=== PATIENT | female | born 1955 | race Caucasian/White ===

== ENCOUNTER 2018-09-15 10:09 | Inpatient (IN) ==
[2018-09-15] MEDS ORDERED: NS 1,000 ML IV ONE ×3 (11:00→15:58)
[2018-09-15 11:29] LABS: BASO# 0.01 X1000 (0.0-0.2); HEMATOCRIT 23.6 % (37.0-47.0); HEMOGLOBIN 7.9 g/dL (12.0-16.0); IMM GRAN# 0.23 X1000 (0.0-0.04); LYMPH# 1.01 X1000 (1.2-3.4); LYMPH% 4.2 % (20.5-51.1); MCH 36.7 PG (27-31); MCHC 33.5 g/dL (33-37); MCV 109.8 FL (81-99); MONO# 0.48 X1000 (0.11-0.59); MPV 10.5 FL (7.4-10.4); NEUT# 22.43 X1000 (1.4-6.5); NEUT% 92.8 % (42.2-75.2); PLT 161 X1000 (130-400); RBC 2.15 XMIL (4.2-5.4); RDW 20.8 % (11.5-14.5); WBC 24.16 X1000 (4.8-10.8)
[2018-09-15 11:42] LABS: BANDS 26 % (0-1); LYMPHS 4 % (21-51); SEGS 70 % (42-75)
[2018-09-15 11:52] LABS: ALB/GLOB RATIO 0.8; ALBUMIN 2.5 g/dL (3.5-5.0); CALCIUM 7.6 mg/dL (8.8-10.2); CREATININE 1.4 mg/dL (0.5-0.9); MAGNESIUM 1.3 mg/dL (1.5-2.7); POTASSIUM 3.9 mmol/L (3.5-5.1); TOTAL BILIRUBIN 0.77 mg/dL (0.20-1.00); TOTAL PROTEIN 5.6 g/dL (6.3-8.3)
[2018-09-15 12:01] LABS: T4 3.48 ug/dL (4.60-12.00); TSH 2.01 uIUmL (0.27-4.20)
[2018-09-15 13:41] LABS: INR 0.91; PTT 29.4 Seconds (22.3-41.8)
--- NOTE | 2018-09-15 13:46 | Diag Imaging Result Doc PS360 ---
EXAM: CHEST-1 VIEW INDICATION: sepsis prot. TECHNIQUE: One view COMPARISON: 11/10/2017 FINDINGS: There is evidence of prior granulomatous disease, stable. The lungs are grossly clear. There is no discrete pleural fluid collection or pneumothorax. The cardiomediastinal silhouette and central vasculature are grossly unremarkable. IMPRESSION: No evidence of acute pathology by plain radiograph. Electronically signed by Kush Sterling 09/15/2018 1:43 PM
[2018-09-15] MEDS ORDERED: LEVAQUIN 500 MG/D5W 500 MG/100 ML IVPB IV ONE (14:01)
[2018-09-15 14:04] LABS: URINE SOURCE CATH
[2018-09-15 14:14] LABS: UR EPITHELIAL CELLS <10 /HPF (<10); URINE BACTERIA 4+ /HPF; URINE RBC <10 /HPF (<10); URINE WBC TNTC /HPF (<10)
[2018-09-15 14:16] LABS: BILIRUBIN URINE SMALL (NEGATIVE); BLOOD URINE SMALL (NEGATIVE); COLOR ORANGE; GLUCOSE URINE NEGATIVE (NEGATIVE); KETONE URINE NEGATIVE (NEGATIVE); LEUKOCYTES URINE LARGE (NEGATIVE); NITRITE URINE NEGATIVE (NEGATIVE); PROTEIN URINE 100 mg/dL (NEGATIVE); SP GRAVITY URINE 1.014; TURBIDITY URINE TURBID (CLEAR); UROBILINOGEN URINE 8 mg/dL (NORMAL)
--- NOTE | 2018-09-15 15:29 | PROVIDER DOCUMENTATION ---
This chart was entered by Josey Cardoso Scribe, acting as scribe for Ronan Moctezuma MD. HPI-General Adult - General Chief Complaint: General Adult Stated Complaint: DR SERRANO REFERRED Time Seen by Provider: 09/15/18 10:49 Source: patient, family () Allergies/Adverse Reactions: Patient Allergies Allergy/AdvReac Type Severity Reaction Status Date / Time No Known Allergies Allergy Verified 11/10/17 03:08 Home Medications: Home Medication List Medication Instructions Recorded Confirmed Last Taken Type Gabapentin 400 mg PO TID 11/10/17 09/15/18 Unknown History Hydrochlorothiazide 12.5 mg PO DAILY 11/10/17 09/15/18 Unknown History Mirtazapine 15 mg PO HS 11/10/17 09/15/18 Unknown History Ferrous Sulfate 325 mg PO WBREAKFAST tablet 11/13/17 09/15/18 Unknown Rx Oxycodone I.r. [Oxy Ir] 5 mg PO Q3H PRN PRN tablet 11/13/17 09/15/18 Unknown Rx Cholecalciferol (Vitamin D3) 50,000 unit PO DAILY 09/15/18 09/15/18 Unknown History [Dialyvite Vitamin D3 Max] Diphenhydramine HCl [Benadryl 25 mg PO DAILY 09/15/18 09/15/18 Unknown History Allergy] Fluticasone 50 Mcg Nasal [place] 16 gm NS DAILY 09/15/18 09/15/18 Unknown History [Flonase] Mirtazapine [Remeron] 15 mg PO QHS 09/15/18 09/15/18 Unknown History Omeprazole 20 mg PO DAILY 09/15/18 09/15/18 Unknown History Ondansetron HCl 4 mg PO TID PRN 09/15/18 09/15/18 Unknown History - History of Present Illness -Gen Adult Nature of Presenting Problems: 63 yowf presents to the ed from dr serrano office this am. pt was sent to ed with hypotensive episode , fatigue and chronic diarrhea . pt sts sx have been intermittent for 6 months but have worsened in the last 4 days. pt is pale on exam and tearful Location of Pain/Injury: reports: none Pain Radiation: reports: no radiation Quality of Pain: reports: none Severity: reports: moderate Onset/Duration: reports: other (6 months) Timing: reports: still present, intermittent, getting worse (last 4 days) Context/Activities at Onset: reports: light activity Modifying Factors: improves with: nothing Associated Symptoms: reports: diarrhea, fatigue, genitourinary problems (dysuria), loss of appetite, weakness. denies: back/neck pain, chest pain, cough, headaches, shortness of breath, syncope, vomiting Similar Symptoms Previously?: Yes Recently seen or treated by another doctor?: Yes (dr serrano today) Review of Systems - Adult - REVIEW OF SYSTEMS - ADULT Constitutional: reports: see HPI, fatique. denies: chills, fever Eyes: reports: no symptoms reported Ears, Nose, Mouth & Throat: reports: no symptoms reported Cardiovascular: denies: chest pain, palpitations Respiratory: denies: cough, shortness of breath, wheezing Gastrointestinal: reports: diarrhea, poor appetite. denies: abdominal pain, nausea, vomiting Genitourinary: reports: see HPI, dysuria Musculoskeletal: reports: see HPI, muscle weakness. denies: back pain, neck pain Integumentary: reports: no symptoms reported Neurological: denies: dizziness/vertigo, headache/migraines Psychiatric: reports: no symptoms reported Endocrine: reports: no symptoms reported Hematologic/Lymphatic: reports: see HPI, easy bruising, low blood count Allergic/Immunologic: reports: no symptoms reported All Other Systems: Reviewed and Negative Past History - Adult - PAST MEDICAL HISTORY-ADULT Review of Records: reports: Old Records Reviewed, Nursing Assessment Review, Medications Reviewed, Social history reviewed & non-contributory. Major Childhood Illnesses: reports: denies history Cardiovascular: reports: HTN Respiratory: reports: denies history Gastrointestinal: reports: GERD Obstetrical/Gynecological: reports: denies history Genitourinary: reports: kidney disease Musculoskeletal: reports: denies history Hand Dominance: Right Handed Neurological: reports: Parkinson's, other (Guillain Munson syndrome) Psychiatric: reports: depression Endocrine/Immune: reports: anemia Other Conditions: reports: denies history - PRIOR SURGERIES/PROCEDURES Surgical/Procedure History: reports: cholecystectomy, hysterectomy, gastric bypass, other (rt kidney removed) - IMMUNIZATION STATUS Childhood Immunizations: See Nurse Assessment Flu Vaccine: See Nurse Assessment - FAMILY HISTORY Family History: reviewed, not pertinent - SOCIAL HISTORY Smoking: cigarettes, less than 1 pack/day Provider spent 3-5 mins advising pt. on dangers of tobacco.: Discussed manners to quit use, and f/u contacts for add'l counseling. Substance Use: alcohol (wine) Alcohol Use Frequency: every day Number of drinks per typical drinking period:: 3-4 drinks Living Situation: family Physical Exam-General - PHYSICAL EXAM-ADULT Initial Vital Signs Reviewed: Yes - CONSTITUTIONAL General Appearance: alert, mild distress, obese, other (tearful) - EYES Eyes: PERRL/EOMI, pale conjunctivae - HEAD, EARS, NOSE, MOUTH & THROAT HENMT: negative: moist mucous membranes (sry oral) - NECK Neck: non-tender, full range of motion, supple, normal inspection - RESPIRATORY Respiratory: chest non-tender, lungs clear, normal breath sounds, increased rate (24) - CARDIOVASCULAR Cardiovascular: normal peripheral pulses, tachycardia (101), other (BP 85/57) - CHEST (BREASTS) Chest/Breast: deferred - GASTROINTESTINAL (ABDOMEN) Abdominal Exam: normal bowel sounds, non tender, soft - GENITOURINARY Female Genitalia/Pelvic Exam: deferred Rectal Exam: deferred Hemoccult Exam: deferred - LYMPHATIC Lymphatic: no adenopathy - MUSCULOSKELETAL Back Exam: normal inspection, no CVA tenderness, no vertebral tenderness Extremity: normal range of motion, non-tender, normal gait (per baseline), swelling (BLE edema) - SKIN Integumentary: normal turgor, pallor - NEUROLOGIC Neurologic: grossly normal, no motor/sensory deficits - PSYCHIATRIC Psych/Mental Status: normal thought content, normal thought process, oriented x 3, tearful Progress - PLAN OF CARE/RESULTS Progress/Plan/Lab Results: Vital Signs - 8 hr 09/15/18 10:36 Temperature 98.4 F Pulse Rate 101 H Respiratory Rate 20 Blood Pressure 85/57 O2 Sat by Pulse Oximetry 99 Orders Category Date Time Status CBC WITH DIFF [HEME] Stat Lab 09/15/18 11:16 Ordered COMPREHENSIVE METABOLIC PANEL [CHEM] Stat Lab 09/15/18 11:16 Ordered MAGNESIUM [CHEM] Stat Lab 09/15/18 11:16 Ordered T4 Stat Lab 09/15/18 11:16 Ordered TSH Stat Lab 09/15/18 11:16 Ordered 0.9% Sodium Chloride Inj [Ns] 1,000 ml Med 09/15/18 11:00 Active IV 999 mls/hr Result Diagrams: 09/15/18 11:10 09/15/18 11:10 - REASSESSMENT Reassessment #1 Time Reassessed: 13:12 (pt is resting in bed in no distress) Status: improving Reassessment #2 Time Reassessed: 15:25 (pt is resting in bed) Status: unchanged - XRAY 1 XRAY: Bilateral XRAY Study: Chest Impression: See EMR Report (EXAM: CHEST-1 VIEW INDICATION: sepsis prot. TECHNIQUE: One view COMPARISON: 11/10/2017 FINDINGS: There is evidence of prior granulomatous disease, stable. The lungs are grossly clear. There is no discrete pleural fluid collection or pneumothorax. The cardiomediastinal silhouette and central vasculature are grossly unremarkable. IMPRESSION: No evidence of acute pathology by plain radiograph. Electronically signed by Kush Sterling 09/15/2018 1:43 PM 09/15/18 1343 Interpreting Physician: Kush Sterling MD Dictated Date/Time: 09/15/18 1343 cc: Ronan Moctezuma MD; Cornelio Serrano MD) - CONSULTS/PCP/HOSPITALIST Notification #1 *Consult/PCP/Hospitalist*: hospitalist Time Discussed: 15:25 Consult Disposition: Admit Departure - Departure Date of Disposition Decision: 09/15/18 Time of Disposition Decision: 15:27 DIAGNOSIS: Sepsis secondary to UTI, Hypomagnesemia, Hypothyroid, Macrocytic anemia DIAGNOSIS: (Ruled Out): Hypothyroid coma Disposition: ADMITTED INPATIENT 09 Certified Medical Emergency: Emergent Condition: Serious Referrals and Follow-Ups: Cornelio Serrano MD [Primary Care Provider] - - Critical Care Note This patient required my direct & personal management of CC.: Yes Total Time (mins): 36 Critical Care Statement: This patient required my direct personal management to treat or rule out processes, the absence of which, could potentiallly result in sudden, clinically significant life or limb threatening deterioration. Attestation - Physician/ LILIANE Attestation Patient care was provided by Advanced Practice Provider:: No The physician spent face to face time with patient:: Yes Advanced Practice Provider documentation review:: Supervising physician onsite and consulted in the evaluation and care of this patient. The physician did have a face to face encounter with the patient. This chart was documented by the lilian rivera, (Josey Cardoso, Greta) and accurately reflects the services I performed and decisions made by me, Ronan Moctezuma MD, as attested by the provider's signature.
[2018-09-15] MEDS ORDERED: TYLENOL PO PRN (16:12)
[2018-09-15] MEDS ORDERED: ZOFRAN IV PRN (16:12)
[2018-09-15] MEDS ORDERED: MAGNESIUM SULFATE 2 GM/S.W.I. 2 GM/50 ML IVPB IV ONE (16:13)
[2018-09-15] MEDS ORDERED: ROCEPHIN 1 GM in NS 50 ML IV SCH (16:15)
--- NOTE | 2018-09-15 16:52 | HISTORY AND PHYSICAL ---
She does not have a primary care physician, but she has seen Dr. Vieyra. She has seen Dr. Villasenor for Gastroenterology, Dr. Vieyra for anemia. This is a 63-year-old with a history of: 1. Parkinson's. 2. Hypertension. 3. She is status post gastric bypass surgery. I believe this was a Nichelle-en-Y. It was done in 2004, but I do not know about that. 4. Gastroesophageal reflux. 5. Anemia and folate deficiency. PAST SURGICAL HISTORY: 1. Gastric bypass surgery. 2. Cholecystectomy. 3. Hysterectomy. 4. 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 5. She had a fractured hip. She spent some time in rehabilitation after that. She did make some progress, but she presents stating that for the last 4 or 5 months, she has progressively gotten weaker to the point that 4 or 5 days ago she could not hardly get out of bed. She denies pain. She denies fever or chills. No gross hematuria or dysuria. No cough. No pleuritic pain. ALLERGIES: No known drug allergies. SOCIAL HISTORY: A 50-[id number]-uhmd history of smoking and used to have at least a history of social alcohol. Denies any illicit drug use. FAMILY HISTORY: No history of coronary artery disease. No history that she thinks is significant. REVIEW OF SYSTEMS: General: She has lost 25 pounds she thinks in the last 6 months. No fever or chills reported. HEENT: She does not report any visual or hearing acuity change. No upper respiratory complaints. Neck: No adenopathy that she is aware of. No neck pain. Respiratory: No increased work of breathing or dyspnea. Cardiovascular: No chest pain or tachy palpitations. Gastrointestinal and Genitourinary: No gross hematuria or dysuria. Musculoskeletal/Neurologic: No focal complaints, just general weakness. Endocrinologic/Hematologic: History of anemia. History of folate and B12 deficiency. PHYSICAL EXAMINATION: VITAL SIGNS: Temperature 99.7 degrees, pulse 114, respirations were 19, blood pressures been running in 60s and 70s. GENERAL: They have given her 2 L of fluid and starting on the 3rd. She reports she has not drunk or eaten much, and it looks like she is volume depleted. HEENT: Pupils were equal. NECK: No distended neck veins. CVP less than 6 cm from the right atrium. No cervical or supraclavicular adenopathy. Neck was supple. VASCULAR: Carotid, radial, and popliteal pulses 2+ and symmetrical. CARDIOVASCULAR: Regular rhythm and rate without murmur or S3. PMI nondisplaced. LUNGS: Clear in all lung aceves, anterior and posterior lateral. GASTROINTESTINAL: Abdomen is soft, nondistended. Nontender. I do not appreciate organomegaly. EXTREMITIES: She has 2+ pitting edema from the ankles all the way up to almost her knee symmetrical. SKIN: I did not see any rashes, oral or nasal mucosa lesions. DIAGNOSTIC STUDIES: White count 24,160, hematocrit is 23 hemoglobin 7.9, platelet count 169,000. Sodium 133, potassium 3.9, chloride 96, BUN 10, creatinine 1.4, calcium is 7.6, magnesium was 1.3, AST is elevated at 241, ALT was 85, alkaline phosphatase is 287, total bilirubin was 0.77, albumin 2.5, total protein was low at 5.6. TSH is 2.01, T4 was 3.48. Pro-time 13, INR 0.9, PTT is 29. Urinalysis: 4+ bacteria, whu-yeqmgana-gl-count white blood cells. Chest x-ray: No evidence of acute pathology or infiltrate. ASSESSMENT AND PLAN: 1. General weakness status post gastric bypass with a history of B12 and folate deficiencies. We need to check her B12 and folate. We are going to go ahead and give her a B12 IM injection 1000 mg once a day for the next 3 days, and we will put her on folate 1 mg p.o. twice a day. Note: She has a history of iron deficiency, I believe. MCV, though, was macrocytic, it is 109, and her hematocrit is 23, hemoglobin 7.9, and I suspect that will drop after her fluids. We will type and cross 2 units of packed red blood cells, and we will plan on giving her that probably in the morning so we will get that ready for the morning. We will check her iron studies again, serum iron, ferritin, total iron binding capacity. 2. Note the magnesium was low and so we need to supplement that in the emergency room, so we will plan on giving her 2 g of magnesium IV. We will recheck the magnesium again in the morning. We need to check an a.m. cortisol level as well to see if she is cortisone deficient, and I think for now I will put her on a soft GI diet and see how we do with p.o. intake. 3. She has sediment in the urine. She does not give symptoms, but she has ois-muzedaxw-va-count white blood cells so we will treat her for a possible urinary tract infection. She has a history of a solitary kidney. She had a nephrectomy for a nonfunctional kidney that apparently was infected, so we will put her on Rocephin. We will give her ceftriaxone 1 g now and 1 g q.24 h. 4. She has an elevated white count. I think this is nonspecific. We will check it again tomorrow to see if this is just a bone marrow demargination from stress, but we will recheck it. I suspect she has a combination of iron deficiency, B12 and folate deficiencies, and I suspect her anemia is the main cause of her fatigue and weakness. cc: Antwan Cardenas MD
[2018-09-15] MEDS: NS 1,000 ML IV SCH (17:33)
[2018-09-15 17:50] LABS: IRON SATURATION 77 %; TIBC 177 ug/dL; TOTAL IRON 136 ug/dL (49-151); UNBOUND IRON 41 ug/dL (112-346)
[2018-09-15 18:09] LABS: FERRITIN 1245 ng/mL (13-150)
[2018-09-15] MEDS: NEURONTIN PO SCH (18:15)
[2018-09-15] MEDS: CYANOCOBALAMIN IM SCH (18:15)
[2018-09-15] MEDS: FOLIC ACID 1 MG in NS 50 ML IV SCH (21:04)
[2018-09-15] MEDS: REMERON PO SCH (21:05)
[2018-09-16] MEDS: NS 1,000 ML IV SCH ×3 (04:29→16:10)
[2018-09-16 06:10] LABS: BASO# 0.01 X1000 (0.0-0.2); BASO% 0.1 % (0.0-0.8); EOS# 0.03 X1000 (0.0-0.7); EOS% 0.3 % (0.0-10.0); HEMATOCRIT 19.1 % (37.0-47.0); HEMOGLOBIN 6.2 g/dL (12.0-16.0); IMM GRAN# 0.29 X1000 (0.0-0.04); IMM GRAN% 2.5 % (0.0-0.5); LYMPH% 4.3 % (20.5-51.1); MCH 36.3 PG (27-31); MCHC 32.5 g/dL (33-37); MCV 111.7 FL (81-99); MONO# 0.19 X1000 (0.11-0.59); MONO% 1.7 % (1.7-9.3); NEUT# 10.48 X1000 (1.4-6.5); NEUT% 91.1 % (42.2-75.2); PLT 107 X1000 (130-400); RBC 1.71 XMIL (4.2-5.4); RDW 20.6 % (11.5-14.5)
[2018-09-16 06:13] LABS: INR 1.03; PROTIME 14.3 Seconds (11.0-16.0)
[2018-09-16 06:31] LABS: TSH 2.16 uIUmL (0.27-4.20)
[2018-09-16 06:35] LABS: FREE T4 0.52 ng/dL (0.93-1.70)
[2018-09-16 06:43] LABS: ALB/GLOB RATIO 0.8; ALBUMIN 1.8 g/dL (3.5-5.0); MAGNESIUM 1.7 mg/dL (1.5-2.7); POTASSIUM 3.6 mmol/L (3.5-5.1); TOTAL BILIRUBIN 0.28 mg/dL (0.20-1.00); TOTAL PROTEIN 4.1 g/dL (6.3-8.3)
[2018-09-16 06:44] LABS: CALCIUM 6.9 mg/dL (8.8-10.2)
[2018-09-16] MEDS ORDERED: CALCIUM GLUCONATE 1 GM in NS 50 ML IV ONE (06:54)
--- NOTE | 2018-09-16 07:05 | EKG Report ---
Test Performed on : 09/16/2018 06:40:26 AM Test Reason : chest pain Blood Pressure : / mmHG Vent. Rate : 100 BPM Atrial Rate : 100 BPM P-R Int : 164 ms QRS Dur : 072 ms QT Int : 356 ms P-R-T Axes : 072 070 096 degrees QTc Int : 459 ms Normal sinus rhythm. Low voltage QRS Nonspecific ST abnormality Abnormal ECG When compared with ECG of 22-NOV-2012 08:42, aberrant conduction. is no longer present QRS voltage has decreased Criteria for Inferior infarct are no longer present Confirmed by Mihai Hairston MD ([id number]) on 09/21/2018 9:31:03 PM
[2018-09-16] MEDS ORDERED: MAGNESIUM SULFATE 2 GM/S.W.I. 2 GM/50 ML IVPB IV ONE (07:55)
--- NOTE | 2018-09-16 08:12 | PROGRESS NOTE ---
DATE: 09/16/2018 SUBJECTIVE: Ms. Montejo slept pretty good last night. She may feel a little bit better. Hemoglobin was 6. We gave her some fluid; I think that has helped. I gave her a little magnesium. I have given her B 12 and folate. OBJECTIVE: Vital Signs: On her exam today, afebrile. Temperature 98.4 degrees, pulse 95, respirations 18, blood pressure 94/65. Eyes: Pupils are equal and round. Lungs: Clear in all lung aceves. Cardiovascular exam: Regular rhythm and rate without murmur or S3. Abdomen: Soft. Skin: Warm and dry. : Urine output was 1400 mL. X-RAYS: EKG: Normal sinus rhythm, no ST-segment deviation. LABS: Reviewed lab. White count 11,500 came down from 24,000 yesterday, hematocrit 19, hemoglobin 6.2, MCV was 111. Sodium 140, potassium 3.6, chloride 108. BUN 14, creatinine 1.0 which is down from 1.4, calcium was 6.9, magnesium up to 1.7. AST 85 went down to 53, ALT 287 went down to 169. TSH was 2.16, T4 was 0.52. ASSESSMENT AND PLAN: 1. Anemia, combination macrocytic and I think she is iron deficient as well. We will check some iron studies and indeed she has a total iron binding capacity 177, total iron was 136, and ferritin was 41. So, continue B 12 and folate. We will give her 2 units of packed red blood cells. We will give her a little additional magnesium. 2. She had sediment in the urine. Not convinced it was symptomatic, but we are going to treat her anyway. She did have an elevated white count. So, she is on ceftriaxone 1 g IV q. 24 hours. 3. Status post gastric bypass surgery. 4. General weakness. I think this is related to her anemia, electrolyte abnormalities. cc: Antwan Cardenas MD
[2018-09-16] MEDS: CYANOCOBALAMIN IM SCH (08:37)
[2018-09-16] MEDS: NEURONTIN PO SCH ×3 (08:37→20:53)
[2018-09-16] MEDS: FERROUS SULFATE PO SCH (08:37)
[2018-09-16] MEDS: MAG-OX PO SCH ×2 (08:44→20:53)
[2018-09-16] MEDS ORDERED: CHOLECALCIFEROL PO SCH (09:00)
[2018-09-16] MEDS: FOLIC ACID 1 MG in NS 50 ML IV SCH ×2 (09:29→20:53)
[2018-09-16] MEDS: ZOSYN 3.375 GM in NS 50 ML IV SCH ×3 (09:57→20:54)
[2018-09-16] MEDS: FLONASE NAS SCH (10:21)
[2018-09-16] MEDS: REMERON PO SCH (20:53)
[2018-09-16] MEDS: OXY IR PO PRN (21:40)
[2018-09-17] MEDS: ZOSYN 3.375 GM in NS 50 ML IV SCH ×4 (03:22→20:39)
[2018-09-17] MEDS: NS 1,000 ML IV SCH ×2 (03:22→14:19)
[2018-09-17] MEDS: OXY IR PO PRN ×2 (03:46→09:51)
[2018-09-17 05:58] LABS: BASO# 0.01 X1000 (0.0-0.2); BASO% 0.1 % (0.0-0.8); EOS# 0.04 X1000 (0.0-0.7); EOS% 0.5 % (0.0-10.0); HEMATOCRIT 28.8 % (37.0-47.0); HEMOGLOBIN 9.6 g/dL (12.0-16.0); IMM GRAN# 0.04 X1000 (0.0-0.04); IMM GRAN% 0.5 % (0.0-0.5); MCH 33.9 PG (27-31); MCHC 33.3 g/dL (33-37); MCV 101.8 FL (81-99); MONO# 0.26 X1000 (0.11-0.59); MPV 10.9 FL (7.4-10.4); NEUT# 7.61 X1000 (1.4-6.5); NEUT% 88.9 % (42.2-75.2); PLT 100 X1000 (130-400); RBC 2.83 XMIL (4.2-5.4); RDW 22.4 % (11.5-14.5); WBC 8.56 X1000 (4.8-10.8)
[2018-09-17] MEDS: SYNTHROID PO SCH (06:07)
[2018-09-17 06:17] LABS: AGAP 13; ALB/GLOB RATIO 0.6; ALBUMIN 1.9 g/dL (3.5-5.0); ALKALINE PHOSPHATASE 181 U/L (32-104); BUN 13 mg/dL (8-22); CALCIUM 7.4 mg/dL (8.8-10.2); CHLORIDE 108 mmol/L (98-107); COSMO 275; CREATININE 0.8 mg/dL (0.5-0.9); ESTIMATED GFR > 60; GLUCOSE 91 mg/dL (70-104); GOT 75 U/L (10-30); GPT 44 U/L (10-36); POTASSIUM 3.6 mmol/L (3.5-5.1); SODIUM 138 mmol/L (136-145); TCO2 17 mmol/L (25-35); TOTAL BILIRUBIN 0.41 mg/dL (0.20-1.00); TOTAL PROTEIN 4.9 g/dL (6.3-8.3)
--- NOTE | 2018-09-17 09:09 | PROGRESS NOTE ---
DATE: 09/17/2018 SUBJECTIVE: Ms. Montejo says she just does not feel good today. Still coughing. She still feels like she is pretty weak. She was able to eat a little bit, and get some bites of food down. OBJECTIVE: Temp 97.9 degrees, pulse 105, respirations 19 and blood pressure 138/91. Pupils are equal and round. Lungs are clear in all lung aceves. Cardiovascular exam regular rhythm and rate without murmur or S3. Abdomen is soft. Skin is warm and dry. LABORATORY DATA: Labs from this morning, white count 8560, hemoglobin 9.6, hematocrit 28, and platelet count 100,000. Chemistries show sodium 138, potassium 3.6, chloride 108, BUN 13, and creatinine 0.8. Transaminases have come down AST from 136 to 75, ALT 53 to 44, alkaline phosphatase 69 to 181, albumin is 1.9. T4 was 0.52 and TSH was 2.16. Cortisol was good at 17.4. ASSESSMENT AND PLAN: 1. Anemia, combination of macrocytic and iron deficiency anemia. Given 2 units of packed red blood cells. We supplemented the potassium and magnesium as well as B12 and folate. 2. Sediment in the urine, treating her as if she has urinary tract infection. 3. Status post gastric bypass surgery. 4. General weakness. Let her rest today. We need to initiate physical therapy soon. We probably will start that tomorrow. REVIEW OF HER ORDERS: I do not see any change. cc: Antwan Cardenas MD
[2018-09-17] MEDS: MAG-OX PO SCH ×2 (09:40→20:39)
[2018-09-17] MEDS: CYANOCOBALAMIN IM SCH (09:40)
[2018-09-17] MEDS: NEURONTIN PO SCH ×3 (09:40→20:39)
[2018-09-17] MEDS: FERROUS SULFATE PO SCH (09:40)
[2018-09-17] MEDS: FOLIC ACID 1 MG in NS 50 ML IV SCH ×2 (09:41→20:39)
[2018-09-17] MEDS: FLONASE NAS SCH (09:52)
[2018-09-17] MEDS: TESSALON PO PRN ×2 (10:35→16:11)
[2018-09-17] MEDS: MUCINEX PO SCH ×2 (10:35→20:40)
[2018-09-17] MEDS: REMERON PO SCH (20:40)
[2018-09-18] MEDS: TESSALON PO PRN ×3 (00:50→17:59)
[2018-09-18] MEDS: ZOSYN 3.375 GM in NS 50 ML IV SCH ×4 (02:04→20:51)
[2018-09-18] MEDS: NS 1,000 ML IV SCH ×2 (02:05→14:52)
[2018-09-18 06:01] LABS: BASO# 0.02 X1000 (0.0-0.2); BASO% 0.3 % (0.0-0.8); EOS# 0.01 X1000 (0.0-0.7); EOS% 0.1 % (0.0-10.0); HEMOGLOBIN 10.3 g/dL (12.0-16.0); IMM GRAN# 0.04 X1000 (0.0-0.04); IMM GRAN% 0.6 % (0.0-0.5); LYMPH# 0.94 X1000 (1.2-3.4); LYMPH% 13.7 % (20.5-51.1); MCHC 33.2 g/dL (33-37); MCV 102.3 FL (81-99); MONO# 0.78 X1000 (0.11-0.59); MONO% 11.4 % (1.7-9.3); MPV 10.7 FL (7.4-10.4); NEUT# 5.05 X1000 (1.4-6.5); NEUT% 73.9 % (42.2-75.2); PLT 84 X1000 (130-400); RBC 3.03 XMIL (4.2-5.4); WBC 6.84 X1000 (4.8-10.8)
[2018-09-18] MEDS: SYNTHROID PO SCH (06:35)
[2018-09-18 06:38] LABS: AGAP 12; ALB/GLOB RATIO 0.5; ALBUMIN 1.9 g/dL (3.5-5.0); ALKALINE PHOSPHATASE 211 U/L (32-104); BUN 8 mg/dL (8-22); CALCIUM 7.7 mg/dL (8.8-10.2); CHLORIDE 109 mmol/L (98-107); COSMO 278; CREATININE 0.7 mg/dL (0.5-0.9); ESTIMATED GFR > 60; GLUCOSE 66 mg/dL (70-104); GOT 57 U/L (10-30); GPT 39 U/L (10-36); MAGNESIUM 1.7 mg/dL (1.5-2.7); POTASSIUM 3.8 mmol/L (3.5-5.1); SODIUM 141 mmol/L (136-145); TCO2 20 mmol/L (25-35); TOTAL BILIRUBIN 0.34 mg/dL (0.20-1.00); TOTAL PROTEIN 5.4 g/dL (6.3-8.3)
--- NOTE | 2018-09-18 07:56 | PROGRESS NOTE ---
DATE: 09/18/2018 SUBJECTIVE: Ms. Montejo is sleeping sound and comfortable, breathing comfortably. Remains afebrile. OBJECTIVE: Vital Signs: Temperature 98.4 degrees, pulse 90, respirations 19, blood pressure 138/83. Eyes: Pupils are equal and round. Lungs: Clear in all lung aceves. Cardiovascular exam: Regular rhythm and rate without murmur or S3. Abdomen: Soft. Skin: Warm and dry. : Urine output was 1200 mL. Telemetry strips: She appears to remain in sinus rhythm. ASSESSMENT AND PLAN: 1. Anemia which I think is a combination of B 12, folate and iron deficiency. Hematocrit appears stable at 31, hemoglobin of 10. Supplementing B 12, folate, and I will give her some iron probably today. 2. Sediment in the urine. I do not have symptomatic evidence of a urinary tract infection, but treating nonetheless. 3. Status post gastric bypass surgery. 4. General weakness, which has been her main complaint. We will continue physical therapy and occupational therapy, and see how we do with ambulation and strength. cc: Antwan Cardenas MD
--- NOTE | 2018-09-18 08:02 | PROGRESS NOTE ---
DATE: 09/18/2018 ADDENDUM: Note that one of her blood cultures grew out E coli and then urine culture grew out E coli, so I do think she had a urinary tract infection with bacteremia most consistent with probably pyelonephritis, and this is improving. E coli is sensitive to cephalexin, so she has good coverage right now. cc: Antwan Cardenas MD
[2018-09-18] MEDS: MUCINEX PO SCH ×2 (08:29→20:51)
[2018-09-18] MEDS: CYANOCOBALAMIN IM SCH (08:29)
[2018-09-18] MEDS: FERROUS SULFATE PO SCH (08:29)
[2018-09-18] MEDS: NEURONTIN PO SCH ×3 (08:29→17:06)
[2018-09-18] MEDS: MAG-OX PO SCH ×2 (08:29→20:50)
[2018-09-18] MEDS: FOLIC ACID 1 MG in NS 50 ML IV SCH ×2 (08:30→21:56)
[2018-09-18] MEDS: FLONASE NAS SCH (09:22)
[2018-09-18] MEDS: REMERON PO SCH (20:51)
[2018-09-19] MEDS: ZOSYN 3.375 GM in NS 50 ML IV SCH ×4 (02:50→21:11)
[2018-09-19] MEDS: NS 1,000 ML IV SCH ×2 (02:50→14:48)
[2018-09-19] MEDS: SYNTHROID PO SCH ×2 (05:18→06:12)
[2018-09-19] MEDS: MAG-OX PO SCH ×2 (08:24→21:11)
[2018-09-19] MEDS: FOLIC ACID 1 MG in NS 50 ML IV SCH ×2 (08:24→21:54)
[2018-09-19] MEDS: MUCINEX PO SCH ×2 (08:24→21:11)
[2018-09-19] MEDS: FERROUS SULFATE PO SCH (08:24)
[2018-09-19] MEDS: NEURONTIN PO SCH ×3 (08:24→16:36)
[2018-09-19] MEDS: FLONASE NAS SCH (10:19)
[2018-09-19] MEDS: TESSALON PO PRN ×2 (16:38→21:54)
--- NOTE | 2018-09-19 16:46 | PROGRESS NOTE ---
DATE: 09/19/2018 SUBJECTIVE: Ms Montejo is feeling better, got some sleep. She is still pretty weak and does not have much energy and she wants to try and pursue rehab. We gave her a couple units of blood yesterday. We have supplemented her B12 and folate. OBJECTIVE: Vital signs: Temperature is afebrile, temperature is 97.8 degrees, pulse 89, respirations 17, blood pressure 131/72. HEENT: Pupils are equal and round. Lungs: Clear in all lung aceves. Cardiovascular: Regular rhythm and rate without murmur or S3. : Urine output was 400 mL. ASSESSMENT AND PLAN: 1. Blood cultures and urine culture grew out Escherichia coli, so treating her for a urinary tract infection with bacteremia. 2. Anemia, B12, folate, and iron deficiency. We gave her some blood and her blood counts are much better, hematocrit 31, hemoglobin 10, MCV is 102, platelet count 84,000. Electrolytes are well supplemented. We had given her a little bit of calcium yesterday and I think we supplemented magnesium and potassium. Her iron studies show that it is low and folate was low. B12 was greater than 2,000. She is still pretty weak, so we are going to look for rehab opportunities and I will ask social service to help us with that. cc: Antwan Cardenas MD
[2018-09-19] MEDS: REMERON PO SCH (21:11)
[2018-09-20] MEDS: ZOSYN 3.375 GM in NS 50 ML IV SCH ×2 (02:02→08:24)
[2018-09-20] MEDS: NS 1,000 ML IV SCH ×2 (02:02→18:05)
[2018-09-20] MEDS: SYNTHROID PO SCH ×2 (05:36→06:04)
[2018-09-20] MEDS: TESSALON PO PRN (05:36)
[2018-09-20] MEDS: FERROUS SULFATE PO SCH (08:24)
[2018-09-20] MEDS: FOLIC ACID 1 MG in NS 50 ML IV SCH ×2 (08:24→20:34)
[2018-09-20] MEDS: MAG-OX PO SCH ×2 (08:24→20:35)
[2018-09-20] MEDS: MUCINEX PO SCH ×2 (08:24→20:35)
[2018-09-20] MEDS: NEURONTIN PO SCH ×3 (08:24→20:35)
[2018-09-20] MEDS ORDERED: MAXIPIME 1 GM in NS 50 ML IV SCH (09:15)
[2018-09-20] MEDS: FLONASE NAS SCH (09:37)
--- NOTE | 2018-09-20 11:00 | PROGRESS NOTE ---
DATE: 09/20/2018 SUBJECTIVE: Ms. Montejo is still pretty weak. She is not complaining so much of swallowing as just a lot of mucus, but her son wanted us to see if we can get her swallow evaluated. She is still pretty weak. She has a little bit of burning still when she passes her water, but the main concern is just her overall weakness. OBJECTIVE: Vital Signs: Temperature 98.1 degrees, pulse 89, respirations 14, blood pressure 136/74. HEENT: Pupils are equal and round. Lungs: Clear in all lung aceves. Cardiovascular: Regular rhythm and rate without murmur or S3. Urine output 2500 mL. ASSESSMENT AND PLAN: 1. Blood cultures with Escherichia coli urinary tract infection. Urine grew Escherichia coli too so a urinary tract infection with bacteremia. Continue to treat. I am going to change her antibiotic to cefepime. Actually, the Escherichia coli is really sensitive to everything, so we could even use cefazolin, and I think she probably needs a full 2 weeks of antibiotic. Can probably change that to p.o. after 7 days. We will get her off the Zosyn because her platelet count was a little low. She probably needs a renal ultrasound, so we will see if we can order that and make sure no sign of obstruction. 2. Anemia, folate deficiency, iron deficiency. Gave her some blood. I have given her some folate, so that is improved. White count has come down from 24,000 to 6840. We will recheck a CBC in the morning and electrolytes. 3. Renal function is good. Creatinine 0.7, on arrival it was 1.4. 4. She is very weak. Continue physical therapy. I think we need to probably look for rehab opportunities. She is extremely weak and I do not think she is ready go home. cc: Antwan Cardenas MD
--- NOTE | 2018-09-20 13:07 | Diag Imaging Result Doc PS360 ---
EXAM: US RENAL 2 (RETROPER) COMPLETE HISTORY: h/o urinary infection with bacteremia TECHNIQUE: Renal ultrasound COMPARISON: None. FINDINGS: The left kidney is not present. The right kidney measures 12.5 x 6.7 x 5.1 cm. Normal renal echotexture and cortical thickness. No renal stone or hydronephrosis. No renal mass. The urinary bladder is moderately distended and is normal. IMPRESSION: Normal right kidney. Electronically signed by Neil Roberson 09/20/2018 1:04 PM
[2018-09-20] MEDS: KEFZOL 2 GM/D5W 2 GM/50 ML IVPB IV SCH ×2 (13:26→21:58)
--- NOTE | 2018-09-20 14:12 | HEMO/ONC CONSULTATION ---
DATE: 09/20/2018 REASON FOR CONSULTATION: This patient is known to us for management of gastric bypass and anemia. HISTORY OF PRESENT ILLNESS: This patient went to the ER on 09/15/2018 after an office visit with Dr. Johnson. While there, she had a hypotensive episode and she has complained of fatigue and chronic diarrhea that has been intermittent for the past 6 months but has gotten worse over the last 4 days. She has a history of gastric bypass as well as a recent fractured hip last fall. Patient spent some time in rehabilitation after that. She states over the last 4 to 5 months, she has progressively gotten weaker and has been unable to get out of the bed for the past 4 to 5 days. PAST MEDICAL HISTORY: Hypertension, GERD, atypical Parkinson's, irritable bowel syndrome, status post right hip fracture, anemia, and folic acid deficiency. PAST SURGICAL HISTORY: Kidney removal, cholecystectomy, hip fracture repair, gastric bypass, and hysterectomy. ALLERGIES: No known drug allergies. HOME MEDICATIONS: Gabapentin, hydrochlorothiazide, mirtazapine, atropine, omeprazole, and folic acid. SOCIAL HISTORY: She has smoked for over 30 years. She drinks alcohol. REVIEW OF SYSTEMS: Positive for fatigue, weight loss, nausea, vomiting, nocturia, and arthritis. She denies pain, fever, chills. No gross hematuria or dysuria. No cough or pleuritic pain. PHYSICAL EXAMINATION: Vital Signs: Temperature 98.1 degrees, pulse rate 89, respiratory rate 14, blood pressure 136/74, O2 saturation 99% on nasal cannula at 3 L. Currently, 0/10 pain. Eyes anicteric. Pupils are equal and round and symmetric. ENT: Normal oral mucosa. Cardiovascular: Normal S1, S2. No murmurs, gallops, or rubs. Respiratory: Chest is clear to auscultation. Normal respiratory effort. Gastrointestinal: Abdomen is soft, nondistended, nontender. No masses. Positive bowel sounds. Lymphatic: Lymphadenopathy survey was negative. LABORATORY: WBCs 6.84, hemoglobin 10.3, hematocrit 31, platelet count 84,000, ANC 5.05. Creatinine 0.7, calcium 7.7. Urinalysis was positive for infection. Urine culture was positive for E. coli. Blood culture was also positive for E. coli. Chest x-ray, no evidence of acute pathology or infiltrate. Renal ultrasound showed the left kidney is not present and that the right kidney is normal. ASSESSMENT: 1. Normocytic anemia. She has a history of gastric bypass and has a folic acid deficiency. Patient is also status post 2 units of packed red blood cells. Continue the patient's folic acid supplementation. 2. Hypomagnesemia. Continue to replete per protocol. 3. Urinary tract infection. Continue to treat per medical management. PLAN: We will continue to follow and continue to optimize her folic acid, B12, and iron. The patient has been instructed to take daily multiple vitamin, sublingual B12, as well as calcium and vitamin D. These instructions were given to her with gastric bypass education in the office. We will follow up with her on an outpatient basis. Dictated by SONA Zamora for Silviano Vieyra MD Patient seen and examined. As above. She was recently seen as a new patient in the clinic for evaluation of anemia. Lab evaluation revealed severe folate deficiency. No iron or B12 deficiency was noted. Rest of her anemia related peripheral blood workup was unrevealing. Hemoglobin in the clinic was 8.1. Last EGD and colonoscopy was in 2018. She was advised to take folic acid daily and see us back in 3 months and call sooner with questions or concerns. She was admitted with increasing tiredness and fatigue. She has been diagnosed to have urinary tract infection. She has received 2 units of PRBCs and H and H has responded appropriately. If her hemoglobin does not improve with folic acid replacement in the next 1-2 months, she will likely require a bone marrow biopsy. Silviano Vieyra M.D. cc: Silviano Vieyra MD [facility]
[2018-09-20] MEDS: REMERON PO SCH (20:35)
--- NOTE | 2018-09-20 20:47 | GASTROENTEROLOGY CONSULTATION ---
DATE: 09/20/2018 REASON FOR CONSULTATION: Dysphagia, anemia, Hemoccult positive stool. HISTORY OF PRESENT ILLNESS: This is a 63-year-old, female who normally sees Dr. Villasenor. Patient states she had seen him not long ago for some IBS issues and diarrhea. She was treated with Imodium and a prescription medication for IBS. She was admitted to [facility] on 09/15/[address] Hernandez. She had been in the office, had a hypotensive episode, reported fatigue and chronic diarrhea. Symptoms had progressed over 4 days prior to admission. She was admitted for further evaluation. During evaluation, patient is found to be anemic. She has received 2 units of packed red blood cells since her admission. She normally follows with Dr. Vieyra. Patient has a history of gastric bypass in 2004. She reports EGD and colonoscopy by Dr. paul approximately a year ago. She has had progressive diarrhea that has been worse over the last 6 months. She has reported occasional dark stools. She had been taking iron. She follows with Dr. Vieyra as noted. PAST MEDICAL HISTORY: 1. Hypertension. 2. Parkinson disease. 3. GERD. 4. Anemia. 5. Vitamin deficiency secondary to gastric bypass. PAST SURGICAL HISTORY: 1. Gastric bypass surgery in 2004. 2. Cholecystectomy. 3. Hysterectomy. 4. Nephrectomy. 5. History of fractured hip repair. ALLERGIES: No known drug allergies. MEDICATIONS: 1. Vitamin D3 50,000 units daily. 2. Benadryl 25 mg daily. 3. Ferrous sulfate 325 mg with breakfast. 4. Flonase daily. 5. Gabapentin 400 mg 3 times a day. 6. Hydrochlorothiazide 12.5 mg daily. 7. Mirtazapine 15 mg every night. 8. Omeprazole 20 mg daily. 9. Zofran 4 mg 3 times a day as needed. 10. Oxycodone IR 5 mg every 3 hours as needed. SOCIAL HISTORY: History of tobacco use. Occasional alcohol use. REVIEW OF SYSTEMS: Per History of Present Illness. PHYSICAL EXAMINATION: Vital Signs: Temperature 98.0 degrees, pulse 89, respirations 12, blood pressure 145/87. General: Patient was awake and alert, in no acute distress. HEENT: Normocephalic, atraumatic. Pupils equal, round, reactive to light. Sclerae nonicteric. Cardiovascular: Regular rate and rhythm. Respiratory: Lung sounds clear bilaterally. Abdomen: Obese, otherwise soft, with positive bowel sounds. Extremities: No lower extremity edema noted. DIAGNOSTIC RESULTS/LABORATORY: Hematology: WBC 6.84, hemoglobin 10.3, hematocrit 31.0, MCV 102.3, platelets 84,000. Chemistry: Sodium 141, potassium 3.8, chloride 109, CO2 20, BUN 8, creatinine 0.7, glucose 66, calcium 7.7, magnesium 1.7. Iron 136, TIBC 177, percent saturation 77, ferritin 1245, total bilirubin 0.34, AST 57, ALT 39, alkaline phosphatase 211, folate 4.2. B12 greater than 2000. IMAGING: Renal ultrasound showed normal right kidney. Left kidney absent. History of nephrectomy. ASSESSMENT AND PLAN: 1. Anemia. Patient has history of gastric bypass. She has been followed with Dr. Vieyra for vitamin deficiency. We will refer to Dr. Vieyra for her vitamin supplement recommendation. Patient has had to receive 2 units of packed red blood cells since admission. Will monitor for any signs of active bleeding. Monitor hemoglobin and hematocrit. 2. Hypomagnesemia. Recommend supplementation. 3. Dysphagia. Patient actually denies dysphagia, but just states she is not able to tolerate a large amount of food at a time. There are some foods that she does not tolerate. She can only eat a small amount at a time. Patient has had esophagogastroduodenoscopy and a colonoscopy about a year ago by Dr. Paul. Patient has recently been following with Dr. Villasenor. We will continue to follow during her hospital course. At this time, do not see any urgent need for esophagogastroduodenoscopy or colonoscopy. Continue vitamin supplements. Monitor hemoglobin and hematocrit and transfuse further packed red blood cells as needed. We will follow during her hospital course and then recommend that she follow back with Dr. Villasenor as an outpatient. Patient has also been seen and examined by Dr. Holden. Thank you for this consultation. Dictated by SONA Springer for Henry Holden MD cc: SONA Burnett MD [facility]
[2018-09-21 06:03] LABS: RETIC% 2.55 % (0.8-2.1); RETIC-HE 29.5 PG (28.2-36.6)
[2018-09-21 06:11] LABS: AGAP 13; BUN 3 mg/dL (8-22); CALCIUM 7.8 mg/dL (8.8-10.2); CHLORIDE 111 mmol/L (98-107); COSMO 285; CREATININE 0.5 mg/dL (0.5-0.9); ESTIMATED GFR > 60; GLUCOSE 93 mg/dL (70-104); MAGNESIUM 1.3 mg/dL (1.5-2.7); POTASSIUM 2.6 mmol/L (3.5-5.1); SODIUM 145 mmol/L (136-145); TCO2 21 mmol/L (25-35)
[2018-09-21 06:29] LABS: BASO# 0.02 X1000 (0.0-0.2); BASO% 0.5 % (0.0-0.8); EOS# 0.04 X1000 (0.0-0.7); HEMOGLOBIN 9.8 g/dL (12.0-16.0); IMM GRAN# 0.02 X1000 (0.0-0.04); IMM GRAN% 0.5 % (0.0-0.5); LYMPH# 0.91 X1000 (1.2-3.4); LYMPH% 23.9 % (20.5-51.1); MCH 33.9 PG (27-31); MCHC 33.8 g/dL (33-37); MCV 100.3 FL (81-99); MONO# 0.46 X1000 (0.11-0.59); MONO% 12.1 % (1.7-9.3); MPV 11.4 FL (7.4-10.4); NEUT# 2.36 X1000 (1.4-6.5); PLT 143 X1000 (130-400); RBC 2.89 XMIL (4.2-5.4); RDW 21.4 % (11.5-14.5); WBC 3.81 X1000 (4.8-10.8)
[2018-09-21] MEDS: KEFZOL 2 GM/D5W 2 GM/50 ML IVPB IV SCH ×3 (06:29→21:27)
[2018-09-21] MEDS: SYNTHROID PO SCH (06:30)
[2018-09-21] MEDS: NS 1,000 ML IV SCH (06:30)
[2018-09-21] MEDS: KLOR-CON PO SCH ×2 (08:42→12:30)
[2018-09-21] MEDS: MAG-OX PO SCH ×2 (08:42→21:27)
[2018-09-21] MEDS: FOLIC ACID 1 MG in NS 50 ML IV SCH (08:42)
[2018-09-21] MEDS: NEURONTIN PO SCH ×3 (08:42→21:28)
[2018-09-21] MEDS: MUCINEX PO SCH ×2 (08:42→21:27)
[2018-09-21] MEDS: FLONASE NAS SCH (08:43)
[2018-09-21] MEDS: MAGNESIUM SULFATE 2 GM/S.W.I. 2 GM/50 ML IVPB IV SCH ×3 (11:15→15:18)
--- NOTE | 2018-09-21 12:03 | PROGRESS NOTE ---
DATE: 09/21/2018 INTERVAL HISTORY: No acute events overnight. Her hypokalemia and hypomagnesemia is being repleted. Repeat blood cultures have been ordered. SUBJECTIVE: Patient is sitting in the chair. Denies any new complaints. Denies chest pain, shortness of breath. Her burning in the urination has significantly decreased. She agrees to go to the rehab. VITALS: Temperature 98.2 degrees, pulse 81, respiratory rate 19, blood pressure 140/77, saturating 100% on nasal cannula. PHYSICAL EXAMINATION: General: Does not appear in any acute distress. Oral cavity is moist. Lungs: Air entry is bilaterally equal. No wheeze, rhonchi, or crackles. Cardiovascular: S1, S2 normal. No murmur or gallop. Abdomen: Soft, nontender. Extremities: Mild bilateral lower extremity edema. LABS: Suggestive of low WBC count. She does have macrocytic anemia. Normal platelet count now. Hypokalemia is being repleted. Her chloride has been stopped. Hypomagnesemia is being repleted. Repeat blood cultures have been ordered. Her stool occult blood test was positive. C difficile toxin analysis was negative. IMAGING: No new data. ASSESSMENT AND PLAN: 1. Escherichia coli sepsis due to acute cystitis. Ultrasound of the kidneys did not detect nephrolithiasis. Continue intravenous cefazolin and follow up repeat blood culture results. My plan is to treat her for a total of 2 weeks of antibiotics. At the time of discharge, I plan to change intravenous cefazolin to oral levofloxacin. 2. Folic acid deficiency anemia with positive fecal occult blood test, status post 2 units of red blood cell transfusion. Continue oral folic acid. She denies any nausea, vomiting or abdominal pain. I will follow up with blood count tomorrow. I would advise her to follow up with Gastroenterology outpatient for repeat endoscopy. According to documentation, it was in 2018. 3. Others. Continue mirtazapine for insomnia; gabapentin and oxycodone for chronic pain. DISPOSITION: The patient has become physically weak and plan is to discharge her to rehab hopefully on once the blood culture results are back. Other issues including gastric bypass surgery and chronic folate and vitamin B 12 deficiency; nephrectomy in the past, stable. Plan of care discussed with the patient. All of her questions have been answered. cc: Matt Carlos MD
--- NOTE | 2018-09-21 13:44 | HEMO/ONC PROGRESS NOTE ---
DATE: 09/21/2018 HISTORY OF PRESENT ILLNESS/CHIEF COMPLAINT: The patient is sitting up in bed eating breakfast. She denies any acute events overnight. She continues to state that she is very fatigued, but she does not have any general complaints of pain anywhere. She states her appetite is good and she is comfortable. OBJECTIVE: Vital signs: Temperature 98.2 degrees, pulse rate 81, respiratory rate 19, blood pressure 147/77, O2 saturation 100% on nasal cannula at 2 L, 0/10 pain. General: On physical examination, she does not appear in any acute distress. Respiratory: Lungs are clear to auscultation. Cardiovascular: Normal S1, S2. No murmur, gallop, or rub appreciated. Gastrointestinal: Abdomen is soft, nontender, nondistended. Extremities: Slight bilateral lower extremity edema noted. LABORATORY: WBC 3.81, hemoglobin 9.8, hematocrit 29.0, platelet count 143,000. ANC 2.36, reticulocyte count 2.55. Sodium 145, potassium is 2.6, creatinine 0.5. Calcium 7.8, magnesium 1.3. ASSESSMENT AND PLAN: 1. Normocytic anemia. 2. Escherichia coli sepsis due to acute cystitis. Patient's lab evaluation revealed a severe folate deficiency. Neither iron nor B 12 deficiency were noted. If Her hemoglobin does not improve with folic acid replacement in the next 1 to 2 months, she will likely require a bone marrow biopsy. We will continue to monitor closely in the hospital, and continue follow-up once discharged. Dictated by SONA Zamora for Silviano Vieyra MD Patient seen and examined. As above. A full lab evaluation done outpatient recently revealed severe folate deficiency and no other findings. She is on folic acid replacement. If this is does not improve her H and H in the next 1-2 months, she will require a bone marrow biopsy. Continue to monitor closely in the meanwhile. Continue current management for Escherichia coli sepsis. Continue to transfuse as needed. I will follow peripherally. Please call with any questions. Silviano Vieyra M.D. cc: Silviano Vieyra MD [facility] [place] DIVISIONS[place]
--- NOTE | 2018-09-21 17:12 | GASTROENTEROLOGY PROGRESS NOTE ---
DATE: 09/21/2018 SUBJECTIVE: Patient is awake and alert. She denies any specific complaints. She has been seen by Dr. Vieyra for vitamin deficiency, she is on vitamin supplements. OBJECTIVE: Vital Signs: Temperature 98.2 degrees, pulse 81, respirations 19, blood pressure 147/77. General: Patient is awake, alert, in no acute distress. ASSESSMENT AND PLAN: Anemia. Patient has had 2 units of packed red blood cells. Patient has history of gastric bypass and folic acid deficiency. Patient is following with Dr. Vieyra. Continue his recommendation for vitamin supplements. Will continue to follow. She had a documented brown stool today. No evidence of active bleeding. Further plans to be made according to her progress, and we will continue to follow during her hospital course in. Then she is recommended to follow back with Dr. Villasenor, who has been seeing the patient recently. I have discussed this case with Dr. Holden. Dictated by SONA Springer for Henry Holden MD cc: SONA Burnett MD [facility]
[2018-09-21] MEDS: REMERON PO SCH (21:27)
[2018-09-21] MEDS: FOLIC ACID PO SCH (21:28)
[2018-09-22] MEDS: KEFZOL 2 GM/D5W 2 GM/50 ML IVPB IV SCH ×3 (05:50→21:17)
[2018-09-22] MEDS: SYNTHROID PO SCH ×2 (05:51→06:14)
[2018-09-22] MEDS: PRILOSEC PO SCH ×2 (05:51→06:14)
[2018-09-22 06:01] LABS: AGAP 10; ALB/GLOB RATIO 0.6; ALBUMIN 1.7 g/dL (3.5-5.0); ALKALINE PHOSPHATASE 154 U/L (32-104); BUN 2 mg/dL (8-22); CALCIUM 7.3 mg/dL (8.8-10.2); CHLORIDE 106 mmol/L (98-107); COSMO 274; CREATININE 0.5 mg/dL (0.5-0.9); ESTIMATED GFR > 60; GLUCOSE 98 mg/dL (70-104); GOT 12 U/L (10-30); GPT 9 U/L (10-36); MAGNESIUM 1.9 mg/dL (1.5-2.7); POTASSIUM 2.6 mmol/L (3.5-5.1); SODIUM 139 mmol/L (136-145); TCO2 23 mmol/L (25-35); TOTAL PROTEIN 4.4 g/dL (6.3-8.3)
[2018-09-22 06:14] LABS: BASO# 0.02 X1000 (0.0-0.2); BASO% 0.4 % (0.0-0.8); EOS# 0.05 X1000 (0.0-0.7); HEMATOCRIT 28.1 % (37.0-47.0); HEMOGLOBIN 9.4 g/dL (12.0-16.0); IMM GRAN# 0.02 X1000 (0.0-0.04); IMM GRAN% 0.4 % (0.0-0.5); LYMPH# 1.02 X1000 (1.2-3.4); LYMPH% 19.7 % (20.5-51.1); MCH 33.1 PG (27-31); MCHC 33.5 g/dL (33-37); MCV 98.9 FL (81-99); MONO# 0.43 X1000 (0.11-0.59); MONO% 8.3 % (1.7-9.3); NEUT# 3.65 X1000 (1.4-6.5); NEUT% 70.2 % (42.2-75.2); PLT 175 X1000 (130-400); RBC 2.84 XMIL (4.2-5.4); RDW 21.2 % (11.5-14.5); WBC 5.19 X1000 (4.8-10.8)
[2018-09-22] MEDS: MUCINEX PO SCH ×2 (09:17→20:28)
[2018-09-22] MEDS: MAG-OX PO SCH ×2 (09:17→20:28)
[2018-09-22] MEDS: FLONASE NAS SCH (09:17)
[2018-09-22] MEDS: NEURONTIN PO SCH ×3 (09:18→20:28)
[2018-09-22] MEDS: FOLIC ACID PO SCH ×2 (09:18→20:27)
[2018-09-22] MEDS: KLOR-CON PO SCH ×2 (10:36→14:01)
[2018-09-22] MEDS: POTASSIUM CHLORIDE 20 MEQ/SWI 20 MEQ/100 ML IVPB IV SCH ×2 (10:36→14:03)
--- NOTE | 2018-09-22 11:23 | PROGRESS NOTE ---
DATE: 09/22/2018 INTERVAL HISTORY: No acute events. Her potassium was low, which is currently being repleted. SUBJECTIVE: Patient denies any nausea, vomiting, abdominal pain, chest pain or shortness of breath. She has some residual burning when she passes urine. We discussed about positive fecal occult blood test and need for follow up with Dr. Villasenor as an outpatient. VITALS: Temperature of 97.8 degrees, pulse 75, respiratory rate 15, blood pressure 146/78, saturating 100% on 2 L nasal cannula. PHYSICAL EXAMINATION: General: The patient does not appear in any acute distress. Oral cavity is moist. Respiratory: Air entry bilaterally equal. No wheeze, rhonchi, or crackles. Cardiovascular: S1, S2 normal. No murmur or gallop. Abdomen: Soft, nontender. Extremities: Mild bilateral lower extremity edema, which is improved. Neurologic: She is alert, oriented x3. Answering all questions appropriately. Input and output suggests she has had bowel movements. LABS: Suggestive of stable hemoglobin, stable platelet count. Potassium of 2.6, which is currently being repleted with IV and p.o. potassium. She does have persistently elevated alkaline phosphatase, which is improving. Her albumin is also on the lower side. Repeat blood cultures are in lab. ASSESSMENT AND PLAN: 1. Escherichia coli sepsis due to acute cystitis. Ultrasound of kidneys did not detect any nephrolithiasis or perinephric abscess. She has been afebrile and leukocytosis has resolved. Continue intravenous cefazolin and change to oral levofloxacin for a total of 2 weeks after first negative blood culture. Repeat blood culture report pending. 2. Folic acid anemia with likely acute blood loss anemia with positive fecal occult blood test, status post 2 units of packed red blood cells transfusion during hospital admission. Continue oral folic acid supplementation as per Hematology/Oncology recommendation. She should get outpatient evaluation by Gastroenterology for need for repeat endoscopy, and also outpatient Hematology/Oncology evaluation for possible need for bone marrow biopsy in the future. 3. Others. Continue levothyroxine for hypothyroidism, mirtazapine for insomnia, gabapentin for chronic pain. 4. Others. She does have prior history of nephrectomy, chronic folic acid deficiency, vitamin B 12 deficiency, gastric bypass surgery. 5. Disposition: If the patient's blood cultures are negative, my plan is to discharge her to [facility] tomorrow. Plan of care discussed with her. All of her questions have been answered. cc: Matt Carlos MD
[2018-09-22] MEDS: REMERON PO SCH (20:27)
--- NOTE | 2018-09-22 22:14 | GASTROENTEROLOGY PROGRESS NOTE ---
DATE: 09/22/2018 SUBJECTIVE: Patient was awake and alert. Physical Therapy was there to work with her at the time of my evaluation. OBJECTIVE: Vital Signs: Temperature 98.2 degrees, pulse 85, respirations 17, blood pressure 131/79. General: Patient is awake and alert in no acute distress. LABORATORY: Hematology: WBC 5.19, hemoglobin 9.4, hematocrit 28.1, platelets 175,000. Chemistry: Sodium 139, potassium 2.6, chloride 106, CO2 23, BUN 2, creatinine 0.5, glucose 98, calcium 7.3. ASSESSMENT AND PLAN: 1. Escherichia coli sepsis/cystitis. Patient on antibiotics. 2. Anemia with vitamin deficiency following with Dr. Vieyra. Patient follows with Dr. Villasenor as an outpatient. We will continue to follow during her hospital course. There are no indications for acute endoscopy. Recommend patient follow with Dr. Villasenor once discharged. I believe once she is discharged she may go to [facility]. We will continue to follow while she is in the hospital. I have discussed this case with Dr. Holden. Dictated by SONA Springer for Henry Holden MD cc: SONA Burnett MD
[2018-09-22] MEDS ORDERED: LEVAQUIN PO ONE (22:34)
[2018-09-23] MEDS: KEFZOL 2 GM/D5W 2 GM/50 ML IVPB IV SCH (05:10)
[2018-09-23] MEDS: SYNTHROID PO SCH (06:42)
[2018-09-23] MEDS: PRILOSEC PO SCH (06:42)
[2018-09-23] MEDS: FLONASE NAS SCH (08:52)
[2018-09-23] MEDS: NEURONTIN PO SCH (08:53)
[2018-09-23] MEDS: FOLIC ACID PO SCH (08:53)
[2018-09-23] MEDS: MAG-OX PO SCH (08:53)
[2018-09-23] MEDS: MUCINEX PO SCH (08:53)
[2018-09-23] MEDS ORDERED: LEVAQUIN PO ONE (09:13)
--- NOTE | 2018-09-23 12:07 | DISCHARGE SUMMARY ---
ADMISSION DATE: 09/15/2018 DISCHARGE DATE: 09/23/2018 DISCHARGE DISPOSITION: [facility]. DISCHARGE CONDITION: Hemodynamically stable. She is alert and oriented x3. Denies any nausea, vomiting, abdominal pain. She does have some left upper extremity swelling, where IV line was infiltrated. Her burning in the urination is significantly decreasing. DISCHARGE DIAGNOSES: 1. Acute urinary tract infection from Escherichia coli. 2. Sepsis due to Escherichia coli. 3. Anemia, likely acute blood loss anemia and folic acid deficiency requiring blood transfusions. 4. Acute kidney injury. 5. Hypocalcemia. 6. Transaminitis because of sepsis. OTHER DIAGNOSES: 1. History of atypical parkinsonism. 2. History of nephrectomy because of infection. 3. History of gastric bypass surgery. 4. History of progressive weakness after fractured hip about 6 months ago. 5. Chronic gastroesophageal reflux disease. CONSULTATIONS AND FOLLOWUP DURING HOSPITALIZATION: 1. Gastroenterology, Dr. Holden. Her fecal occult blood test was positive, though she did not have active bleeding. She was advised to follow up with her routine cancellation clerk, Dr. Villasenor, for repeat EGD and colonoscopy outpatient. 2. Hematology/Oncology, Dr. Vieyra. She received 2 units of transfusion for anemia. The plan was to continue folic acid, and repeat blood count, and outpatient Hematology followup to discuss about possible bone marrow biopsy. DISCHARGE MEDICATIONS: Mirtazapine 15 mg at nighttime, cholecalciferol has been stopped, fluticasone 50 mcg nasal spray 16 grams daily, gabapentin 400 mg t.i.d., hydrochlorothiazide 12.5 mg daily, omeprazole 20 mg daily, ferrous sulfate 325 mg with breakfast, folic acid 1 mg b.i.d., levofloxacin 500 mg daily for 14 days for sepsis due to UTI, ondansetron 4 mg every 12 hours as needed for nausea and vomiting, acetaminophen 650 mg every 6 hours as needed for pain or fever. PHYSICAL EXAMINATION: Vital Signs: At the time of discharge, temperature 97.8 degrees, pulse 77, respiratory rate 18, blood pressure 143/78. She is saturating 99% on room air. General: She is alert and oriented x3. Oral cavity is moist. Lungs: Air entry bilaterally equal. No wheeze, rhonchi, or crackles. Cardiovascular: S1, S2 normal. No murmur, rub, or gallop. Abdomen: Soft, nontender. Extremities: Mild lower extremity edema. She also has some left upper extremity pain because of infiltrated IV line. Neurologic: She is alert and oriented x3. SIGNIFICANT LABORATORY DATA DURING HOSPITAL ADMISSION AND DISCHARGE: Her WBC was 11,500 on admission, which had decreased to 5.19, hemoglobin 9.4, platelets 175,000. Potassium was 2.6, and she was given a total of 120 mEq of potassium. Her potassium should be rechecked within 3 days after discharge. BUN of 2, creatinine of 0.5. Her alkaline phosphatase was 150, total protein was 4.4, albumin of 1.7. SIGNIFICANT MICROBIOLOGY DURING HOSPITAL ADMISSION: Blood culture and urine culture on admission had Escherichia coli, which was sensitive to levofloxacin, cefazolin, and Bactrim. Blood culture on discharge on 09/21/2018 did not have any growth to date. SIGNIFICANT IMAGING DURING HOSPITAL ADMISSION: Chest x-ray on admission had no evidence of acute pathology. Renal ultrasound had normal right kidney with normal echostructure and cortical thickness, without any stone or hydronephrosis or renal mass. EKG on admission had normal sinus rhythm, low voltage QRS, nonspecific ST abnormality. PROCEDURES: No procedures during hospital admission. HOSPITAL COURSE SUMMARY: Ms. Montejo is a 63-year-old lady who presented with history of feeling very weak over the last 4 to 5 days. Apparently, the patient had a fractured hip about 6 months ago, and she underwent rehabilitation. However, since then, she had progressively declined to an extent that about 5 days ago, she was not able to get up, and so she decided to come to the hospital. In the hospital, she was found to have anemia with hemoglobin of 6.2, and urine infection with sepsis. She was admitted and resuscitated with intravenous fluids and antibiotics. Her urine culture grew Escherichia coli. Blood culture also grew Escherichia coli, and she was treated with intravenous cefazolin, which was changed to levofloxacin at the time of discharge. Repeat blood cultures were negative. She did complete 14 days of antibiotics. She received 2 units of transfusion during hospital admission, following which her hemoglobin was stable. Though fecal occult blood test was positive, there was no active bleeding and her hemoglobin was stable. Her folic acid was found to be low at 4.2. She was continued on folate supplement, and Hematology/Oncology had evaluated the patient, and she should consider repeat blood count check within 3 days after discharge, as well as within 4 weeks, and have outpatient Hematology evaluation. She was also advised to follow up with her outpatient cancellation clerk to discuss about repeat EGD and colonoscopy. At the time of discharge, she was hemodynamically stable. All of her questions were answered. More than 30 minutes were spent in discharging this patient. cc: Matt Carlos MD MTDD
[2018-09-23 12:16] VITALS: BP 122/76
--- NOTE | 2018-09-23 22:48 | GASTROENTEROLOGY PROGRESS NOTE ---
DATE: 09/23/2018 SUBJECTIVE: Patient has been moved from the ICU to 3rd floor. She denies complaints. She states she will be going to [facility]. OBJECTIVE: Vital Signs: Temperature 98.8 degrees, pulse 90 respirations 18, blood pressure 122/76. General: Patient was awake and alert, in no acute distress. LABORATORY: Hematology: WBC 5.19, hemoglobin 9.4, hematocrit 28.1, MCV 98.9, platelet 175,000. Chemistry: Sodium 139, potassium 2.6, chloride 106, CO2 of 23, BUN 2, creatinine 0.5, glucose 98, calcium 7.3. ASSESSMENT AND PLAN: 1. Acute urinary tract infection, treated with antibiotics. 2. Anemia. Patient received transfusions of packed red blood cells. 3. Vitamin deficiency. Following with Dr. Vieyra. 4. Acute kidney injury, improved. Recommend that patient continue PPI. Continue vitamin supplements as recommended by Dr. Vieyra. Recommend patient follow up with Dr. Vieyra as an outpatient and also follow up with Dr. Villasenor, who is her primary perioperative nurse. I have discussed this case with Dr. Holden. Dictated by SONA Springer for Henry Holden MD cc: SONA Burnett MD [facility]
== END 2018-09-23 14:11 | DRG 872 ==
LOC: ED 10:09 → SUATTDRO 16:31 → EDIPHOLD 16:31 → 3S 20:05 → 3N 09-23 01:46
PROVIDERS: ATTEND Internal Medicine
CPT/HCPCS: 36430; 51701; 71010; 71045; 76770; 80048; 80053; 81001; 82270; 82306; 82533; 82550; 82607; 82728; 82746; 83540; 83550; 83605; 83735; 84436; 84439; 84443; 84484; 85025; 85045; 85610; 85730; 86850; 86900; 86901; 86920; 87040; 87077; 87088; 87186; 87324; 93005; 93010; 94760; 94761; 94799; 96361; 96365; 96367; 96372; 97110; 97116; 97162; 97530; 99285; 99291; A9270; J0610; J0690; J0692; J0696; J1956; J2543; J3420; J3475; J3480; J7030; P9016; P9612